=== PATIENT | female | born 1975 | race Caucasian/White ===

== ENCOUNTER 2022-10-03 05:07 | Emergency (ER) | payer MEDICAID ==
[~2022-10-03] VITALS: Ht 167.6 cm; Wt 68.0 kg
[2022-10-03 06:26] VITALS: BP 137/73
[2022-10-03] MEDS ORDERED: IVER3TAB2 PO (06:46)
== END 2022-10-03 06:56 | disposition home or self-care (01) ==
LOC: ER 05:13
DX: B81.8 Other specified intestinal helminthiases (principal); Z76.0 Encounter for issue of repeat prescription